=== PATIENT | female | born 1990 | race Caucasian/White ===

== ENCOUNTER 2019-09-26 13:56 | Outpatient (CLI) | payer BC, SELFPAY ==
--- NOTE | 2019-09-26 14:06 | US_ITS ---
WS: [id number] OBSTETRICAL ULTRASOUND COMPLETE HISTORY: SUPERVISION OF NORMAL MULTIGRAVIDA COMPARISON: None available. Single intrauterine gestation in Cephalic presentation. Cervix is Closed and normal length. Cervical length is 3.9 cm. Normal amount of amniotic fluid surrounds the fetus. Placenta: Posterior, no previa or abruption. Placenta grade 1 Heart: 164 BPM. Four chambers are identified. Anatomy: Intracranial structures and spine are normal. kidneys, stomach and urinary bladd er are unremarkable. Abdominal wall, three-vessel cord and cord insertion site are normal. 4 extremities are present. profile: Unremarkable. Gender: Male. measurements: BPD = 4.8 cm = 20w3d HC = 17.9 cm = 20w3d AC = 15.4 cm = 20w4d FL = 3.4 cm = 20w4d EFW: 360 g., Measurements are internally concordant. AGA by ultrasound: 20w4d COREY by ultrasound: 02/09/2020 US/US OB >= 14 weeks fetus [id number] IMPRESSION: 1. Single intrauterine gestation of 20w4d with an EDC of 02/09/2020. 2. Unremarkable screening survey of anatomy.
== END 2019-09-26 13:57 | disposition home or self-care (01) ==
LOC: RAD 14:00
PROVIDERS: Visit Provider Family Medicine
DX: Z34.81 Encounter for supervision of other normal pregnancy, first trimester (principal)
CPT/HCPCS: 76805

== ENCOUNTER 2020-02-05 15:45 | Inpatient (IN) | payer BC, SELFPAY ==
[2020-02-05] VITALS (42 sets, daily range): BP systolic 0–165; BP diastolic 0–105; PULSE 77–105; RESP 16–18; TEMP 36.4–37.3; O2SAT 91–99; BMI 29.2
--- NOTE | 2020-02-05 16:46 | P.HP_ITS ---
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 She presents at 39-2/7 weeks gestation for elective induction of labor. 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 Also, she is group B strep positive and will need intrapartum antibiotic prophylaxis. course has also been complicated by anemia of and tobacco use during , although patient has gotten herself down to smoking 1 to 2 cigarettes/day. Present Details : 3 Para: 1 Date of Last Menstrual Period: 05/06/19 Calculated Date of Delivery: 02/10/20 Gestational Age Based on Last Menstrual Period: 39 Dating criteria OB: LMP confirmed by 2nd trimester US care: good care Ultrasounds: normal 1st trimester US and normal mid trimester US Obstetrical complications: other (Group B strep positive status, anemia of ) Other Details: Abnormal glucose tolerance testing Labs Blood type OB HPI: O (+) positive Rubella: Immune RPR: Negative GBS: Positive HBsAG: Negative Other Lab Information: INITIAL LABS: Blood Type: O+ D (Rh) Type: Positive Antibody Screen: Negative HCT/HB.7/40.0 Pap Test: ASCUS with high risk HPV positive (done by [facility] 01/2019, colposcopy negative, has follow-up scheduled with them) Rubella: Immune VDRL: Nonreactive Urine Culture/Screen: Negative HBsAg: Negative HIV Counseling/Testing: Negative Hepatitis C: Negative Chlamydia: Negative GC: Negative 8-18 WEEK LABS: MSAFP/Multiple Markers: Negative 24-30 WEEK LABS: HCT/HGB: 11.8 Diabetes Screen: 181 3 hour GTT (if screen abnormal): Fasting of 63, 1 hour 169, 2-hour 138, 3-hour 48 32-36 WEEK LABS: Group B Strep (35-37 weeks): Positive L&D/Induction Specific History Indication for induction OB: other (Elective secondary to father of baby working out of state and cervix has been changing and she is group B strep positive and in need of intrapartum antibiotic prophylaxis) Planned induction method: per misoprostol protocol Review of Systems Const: Denies: fever(s) : Denies: vaginal bleeding, vaginal discharge or pelvic pain Medications/Allergies Home Medications Medication Instructions Recorded Confirmed Last Taken Type PNV cmb#95-ferrous fumarate-FA 1 tab PO DAILY 02/05/20 02/05/20 02/04/20 08:00 History [] ferrous sulfate [Iron (ferrous 325 mg PO DAILY 02/05/20 02/05/20 02/04/20 08:00 History sulfate)] Allergies Allergy/AdvReac Type Severity Reaction Status Date / Time No Known Allergies Allergy Verified 02/05/20 16:52 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 PFSH: Medical History (Updated 02/05/20 @ 17:17 by Allyn Hamilton MD) Anxiety Depression Migraines Surgical History (Updated 02/05/20 @ 16:53 by Allyn Hamilton MD) S/P tonsillectomy S/P wisdom tooth extraction Family History (Updated 02/05/20 @ 17:03 by Allyn Hamilton MD) Mother Psychiatric illness Depression Social History (Updated 02/05/20 @ 17:07 by Allyn Hamilton MD) Smoking and tobacco status: current every day smoker cigarettes Years cigarettes smoked: 18 Number of cigarettes per day: 1-5 Second hand smoke exposure: Yes Alcohol intake: never Substance/Drug Use: never Adopted: No Caregiver/support person: Yes Lives independently: Yes Household members: significant other, family and children Number of children: 1 Number of grandchildren: 0 Highest education level completed: Associate Degree: Academic Program Current occupational status: previously employed 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 Date GA/Weeks Outcome Route Wt Inf Gender Labor Lgth Comp. Anesth esia Location 05/09/11 38 live - full term Vaginal 6 lb 13 oz Female 18 hours [place], [place] 12/18/18 2 spontaneous Delivery Date: 05/09/11 Patient states that she was induced because they were afraid baby was going to get too big, and I would need a . Allyn Hamilton Delivery Date: 12/18/18 No complications Allyn Hamilton Care COREY Calculator Estimated Delivery Date Method Current WG Current Estimate 02/10/20 LMP (Certain) 39w 2d Expected Delivery Route/Plan Vaginal/misoprostol Vitals/I&O/Wt Last Vital Signs Pulse 104 H 02/05/20 16:23 BP 133/80 02/05/20 16:23 Physical Exam Narrative: EXAM NARRATIVE: For complete physical examination please refer to her records. heart tones are baseline 150 with moderate variability, accelerations and no decelerations. She has an occasional mild contraction which she does not even consider painful. Const: COMMON NORMALS: no acute distress, patient oriented x3, no limitations, healthy appearing, alert and well nourished : MANUAL OB EXAM: dilated 3 cm, effaced (40 to 50%), station (-3, posterior) and other (Vertex) AMNIOTIC FLUID: no fluid Psych: COMMON NORMALS: mental status grossly normal, Normal thought process present, cooperative, normal affect, speech normal and activity/motor behavior normal Data : 02/05/20 16:25 A&P Assessment and plan (1) Encounter for induction of labor: Will plan Cytotec initially after discussion of mechanism of action and potential side effects and comparison to Pitocin given her cervical exam. Status: Acute (2) 39 weeks gestation of : Status: Acute (3) Group B Streptococcus carrier state affecting : We will begin intrapartum antibiotic prophylaxis per the group B strep protocol. Status: Acute (4) Anemia affecting in third trimester: Status: Acute (5) Smoking (tobacco) complicating , third trimester: Status: Acute (6) Abnormal glucose tolerance test during , not yet delivered: Status: Acute Attestations 2 Medical Necessity Statement*: As patient is being induced and treated for group B strep positive carrier status during labor, she will need inpatient admission Time Spent in Patient Care: Greater than 35 minutes Coding Level of Care Code Acute Management Lead for g Fwd Diagnoses Encounter for induction of labor Z34.90 39 weeks gestation of Z3A.39 Group B Streptococcus carrier state affecting O99.820 Anemia affecting in third trimester O99.013 Smoking (tobacco) complicating , third trimester O99.333 Abnormal glucose tolerance test during , not yet delivered O99.810
[2020-02-05] MEDS: dextrose 5%-lactated ringers 1,000 ML 125 ML IV (16:49)
[2020-02-05] MEDS: ampicillin 2,000 MG in sodium chloride 0.9% (plus) 50 ML 100 MG IV (16:49)
[2020-02-05 16:58] LABS: Basophils # 0.1 10^3/uL (0.0-0.1); Basophils % 0.4 %; Eosinophils # 0.1 10^3/uL (0.0-0.8); Hematocrit 36.4 % (37.0-47.0); Hemoglobin 12.2 g/dL (11.5-15.3); Lymphocytes # 2.6 10^3/uL (0.8-4.8); Mean Corpuscular HGB Conc 33.5 g/dL (30.0-36.0); Mean Corpuscular Hemoglobin 32.6 pg (28.0-34.0); Mean Corpuscular Volume 97.3 fL (81-99); Mean Platelet Volume 10.4 fL (7.4-10.4); Monocytes # 0.7 10^3/uL (0.2-0.9); Monocytes % 4.9 %; Neutrophils # 9.56 10^3/uL (1.8-7.7); Neutrophils % 72.2 %; Nucleated Red Blood Cells % 0 %; Platelet Count 278 10^3/cmm (130-400); Red Blood Count 3.74 10^6/uL (4.1-5.3); Red Cell Distribution Width 13.9 % (12.1-15.1); White Blood Count 13.2 10^3/uL (4.0-10.0)
[2020-02-05] MEDS: miSOPROStol 100 mcg tablet 25 MCG VAGINAL (17:06)
--- NOTE | 2020-02-05 18:00 | PC.NURSE ---
1800 PT OFF MONITOR TO WALK FOR 1 HOUR INSTRUCTIONS GIVEN, PT VOICES UNDERSTANDING.
[2020-02-05] MEDS: lactated ringers 1,000 ML 999 ML IV (19:05)
[2020-02-05] MEDS: ampicillin 1,000 MG in sodium chloride 0.9% (plus) 50 ML 100 MG IV (19:32)
--- NOTE | 2020-02-05 21:44 | PM.DELIVERY ---
Delivery Note: Date of delivery: February 05, 2020 Pre-delivery diagnoses: Encounter for induction of labor 39-week gestation hutson intrauterine Group B streptococcus carrier state affecting Anemia of Smoking complicating Abnormal glucose tolerance testing during Post-delivery diagnoses: Encounter for induction of labor 39-week hutson intrauterine Group B strep carrier state affecting Anemia of Smoking complicating Abnormal glucose tolerance testing during Spontaneous rupture of membranes Spontaneous vaginal delivery of a viable term male infant Double nuchal cord Adequate intrapartum group B strep prophylaxis Bilateral periurethral abrasions First-degree perineal laceration status post repair Delivering Physician: Dr. Hamilton Estimated blood loss (mL): 150 Pre-Delivery Course: Patient arrived this afternoon just after 3 PM for cervical ripening and induction of labor at 39-2/7 weeks gestation. She was 3 cm dilated, 40 to 50% effaced and -3 station, vertex and posterior when she started. 1 dose of Cytotec was placed after her first dose of ampicillin per the group B strep protocol was given. She ambulated in the hallways and experienced spontaneous rupture of membranes productive of a moderate amount of just mildly tinged meconium fluid at 184. At that time she was 4 cm dilated, 75% effaced and -2 station and was marty every 1 to 2 minutes. She opted for an epidural, received it and became comfortable. She was then found to be completely dilated and +2 station at 2057. By that time she had received her second dose of ampicillin and was considered adequately treated for group B strep prophylaxis. Delivery: We began the active portion of the second stage of her labor at 2111. In 9 minutes of pushing she delivered a viable male infant at 2120. Head was JOSE. There was a double nuchal cord which was tight and was challenging to reduce but was reduced upon the perineum. Bulb suctioning had been done upon delivery of baby's head and then of baby's body. Baby was placed on maternal abdomen while the cord was clamped by myself after a delay of about 40 seconds, cut by the father the baby and cord blood obtained. Baby was initially stunned but then had a strong cry while on mother's abdomen and was taken to the warmer for routine resuscitative measures which included DeLee suctioning of a few mL's of clear fluid. Gentle traction was placed on the cord, and intravenous Pitocin was given in routine doses. The placenta was then delivered intact at 2126 and appeared matured and calcified. Fundal exam found a firm uterus. Perineum and cervix were inspected, and there were bilateral periurethral abrasions as well as a first-degree midline perineal laceration which looked as though it had torn along old laceration lines. The first-degree perineal laceration was repaired with 2-0 chromic in single layer fashion with use of a running stitch and her epidural as anesthesia. Mother and baby were stable. EBL 150 mL. Post-Delivery Status: Baby had Apgars of 8 at 1 minute and 9 at 5 minutes and he weighed 6 pounds 9 ounces and was 19-3/4 inches in length. A&P Assessment and plan (1) Encounter for induction of labor: Status: Resolved (2) 39 weeks gestation of : Status: Resolved (3) Group B Streptococcus carrier state affecting : Status: Resolved (4) Anemia affecting in third trimester: Status: Resolved (5) Smoking (tobacco) complicating , third trimester: Status: Resolved (6) Abnormal glucose tolerance test during , not yet delivered: Status: Resolved (7) Spontaneous vaginal delivery: Status: Acute (8) Periurethral abrasion, delivered, current hospitalization: Status: Acute (9) Perineal laceration with delivery, first degree: Status: Acute (10) Double nuchal cord: Status: Resolved Coding Level of Care Code Acute Telesales Specialist for Chg Fwd Diagnoses Encounter for induction of labor Z34.90 39 weeks gestation of Z3A.39 Group B Streptococcus carrier state affecting O99.820 Anemia affecting in third trimester O99.013 Smoking (tobacco) complicating , third trimester O99.333 Abnormal glucose tolerance test during , not yet delivered O99.810 Spontaneous vaginal delivery O80 Double nuchal cord O69.1XX0 Periurethral abrasion, delivered, current hospitalization O71.82 Perineal laceration with delivery, first degree O70.0
[2020-02-06] VITALS (12 sets, daily range): BP systolic 0–159; BP diastolic 0–89; PULSE 65–90; RESP 16–18; TEMP 36.4–36.8; O2SAT 97–98
[2020-02-06] MEDS: TRAMadol 50 mg Tablet PO (06:22)
[2020-02-06] MEDS: prenatal vitamin Capsule 1 CAP PO (09:14)
[2020-02-06] MEDS: docusate sodium 100 mg Capsule PO ×2 (09:14→17:16)
[2020-02-06 16:32] LABS: Hematocrit 37.6 % (37.0-47.0); Hemoglobin 12.3 g/dL (11.5-15.3); Mean Corpuscular HGB Conc 32.7 g/dL (30.0-36.0); Mean Corpuscular Hemoglobin 32.1 pg (28.0-34.0); Mean Corpuscular Volume 98.2 fL (81-99); Mean Platelet Volume 10.1 fL (7.4-10.4); Platelet Count 289 10^3/cmm (130-400); Red Blood Count 3.83 10^6/uL (4.1-5.3); White Blood Count 18.8 10^3/uL (4.0-10.0)
--- NOTE | 2020-02-06 18:04 | P.PN_ITS ---
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 She is having some cramping, especially when breast-feeding. Vitals/I&O/Wt Last Vital Signs Temp 98.1 F 02/06/20 15:58 Pulse 87 02/06/20 17:24 Resp 16 02/06/20 17:24 BP 113/71 02/06/20 17:24 Pulse Ox 97 02/06/20 17:24 02/06/20 02/06/20 02/06/20 06:59 14:59 22:59 Intake Total 660.417 / 2062.800 Output Total 800 / 1400 Balance -139.583 / 662.800 Weight last 48 hrs Weight 160 lb 5.644 oz Weight 160 lb Physical Exam Const: COMMON NORMALS: no acute distress, patient oriented x3, healthy appearing, alert and well nourished Neck/C-Spine: COMMON NORMALS: no JVD Resp: COMMON NORMALS: normal respiratory effort, No retractions, No use of accessory muscles and clear to auscultation bilaterally AUSCULTATION: clear to auscultation bilaterally Cardio: COMMON NORMALS: no JVD, regular rate, regular rhythm, S1 normal heart sound present, S2 normal heart sound present, No gallops present (Cardio), No clicks present (Cardio), No murmurs present (Cardio), No rub (Cardio) and Peripheral pulses 2+ throughout RATE: regular rate RHYTHM: regular rhythm HEART SOUNDS: S1 normal heart sound present and S2 normal heart sound present PERIPHERAL PULSES: Peripheral pulses 2+ throughout : UTERUS PALPATION: Yes Other OB uterine findings (Fundus is firm, deep and 2 fingerbreadths below the umbilicus, slightly tender) Extremity: GENERAL: No edema Neuro: COMMON NORMALS: patient oriented x3 SENSORIUM/ORIENTATION: Yes alert Urinary Catheter Management^: Mitchell Latex: Cath Placed During This Visit: yes, but has since been removed by the nurse Reason for Continuing Indwelling Catheter: Accurate Measurement of Urinary Output in Critically Ill Patients Urinary Catheter Date of Insertion: 02/05/20 Urinary Catheter Time of Insertion: 20:12 Date Urinary Catheter Removed: 02/05/20 Time Urinary Catheter Discontinued: 21:10 Data : 02/06/20 16:23 A&P Assessment and plan (1) Spontaneous vaginal delivery: Routine orders Status: Acute (2) Elevated blood pressure reading without diagnosis of hypertension: She had 2 elevated blood pressure readings today, both of which were in the 150 range systolically. These were both times when she was in pain, cramping. Follow-up blood pressure readings have all been in the 1 teens systolically. Status: Acute (3) Periurethral abrasion, delivered, current hospitalization: Status: Acute (4) Perineal laceration with delivery, first degree: Status: Acute Attestations Medical Necessity Statement*: As we are watching her blood pressure, which is something new for her, and she delivered last evening late, we will watch her overnight and discharge tomorrow with baby. Coding Level of Care Code Acute House Decorator for Sandyg Fwd Diagnoses Spontaneous vaginal delivery O80 Elevated blood pressure reading without diagnosis of hypertension R03.0 Periurethral abrasion, delivered, current hospitalization O71.82 Perineal laceration with delivery, first degree O70.0
[2020-02-06] MEDS: calcium carbonate 500 mg Chew Tablet 1000 MG PO (20:04)
[2020-02-07 04:06] VITALS: BP 117/80; PULSE 63; RESP 18; TEMP 36.5; O2SAT 97
[2020-02-07 06:35] LABS: Basophils # 0.1 10^3/uL (0.0-0.1); Basophils % 0.3 %; Eosinophils # 0.3 10^3/uL (0.0-0.8); Eosinophils % 1.9 %; Hematocrit 39.6 % (37.0-47.0); Hemoglobin 12.8 g/dL (11.5-15.3); Lymphocytes # 4.8 10^3/uL (0.8-4.8); Lymphocytes % 32.1 %; Mean Corpuscular HGB Conc 32.3 g/dL (30.0-36.0); Mean Platelet Volume 10.3 fL (7.4-10.4); Monocytes % 6.7 %; Neutrophils # 8.59 10^3/uL (1.8-7.7); Neutrophils % 57.8 %; Nucleated Red Blood Cells % 0 %; Platelet Count 267 10^3/cmm (130-400); Red Cell Distribution Width 13.9 % (12.1-15.1); White Blood Count 14.9 10^3/uL (4.0-10.0)
[2020-02-07 06:54] LABS: Slide Review Slide Review Perform
--- NOTE | 2020-02-07 07:18 | US_ITS ---
WS: [id number] TRANSABDOMINAL PELVIC ULTRASOUND HISTORY: Recent . COMPARISON: None available. Uterus: 16.5 cm x 12.4 cm x 8.7 cm. Markedly enlarged uterus as expected for recent state. Endometrium: 4.4 cm. Markedly thickened endometrial contents. There are a few cystic areas were pred ominantly solid material of slightly increased echogenicity as compared to the myometrium. There is s ome increased vascularity portions of the endometrial contents. Right ovary: 2.9 cm x 2.1 cm x 2.2 cm; no solid or cystic mass. Normal vascularity. Left ovary: 4.6 cm x 2.1 cm x 2.7 cm; no solid or cystic mass. Normal vascularity. No free fluid in the cul-de-sac. US/US pelvic complete* [id number] IMPRESSION: 1. Markedly thickened heterogeneous endometrium. There is increased vascularit y suggesting this could be retained products of the conception. 2. Enlarged uterus as expected from recent state.
--- NOTE | 2020-02-07 07:21 | PM.OBGYDC ---
Discharge Providers LEAD APPLICATIONS DEVELOPER Date of Admission: 02/05/20 15:45 Date of Discharge: 02/07/20 Attending Provider at Admission: Allyn Hamilton MD Attending Provider at Discharge: Allyn Hamilton MD Primary Care Provider: Allyn Hamilton MD Diagnoses at Discharge Discharge Diagnosis (1) Encounter for induction of labor: Status: Resolved (2) 39 weeks gestation of : Status: Resolved (3) Group B Streptococcus carrier state affecting : Status: Resolved (4) Anemia affecting in third trimester: Status: Resolved (5) Smoking (tobacco) complicating , third trimester: Status: Resolved (6) Abnormal glucose tolerance test during , not yet delivered: Status: Resolved (7) Spontaneous vaginal delivery: Status: Acute (8) Periurethral abrasion, delivered, current hospitalization: Status: Acute (9) Perineal laceration with delivery, first degree: Status: Acute (10) Elevated blood pressure reading without diagnosis of hypertension: Status: Acute (11) Pelvic pain: Status: Acute Reason for Visit Reason for Visit: Induction of labor Hospital Course Hospital Course: Patient arrived in the OB department in the late afternoon of 02/05/2020 for cervical ripening and induction of labor at 39-2/7 weeks electively as 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 She had also been dilating throughout the week and was group B strep positive and in need of intrapartum antibiotic prophylaxis. Upon her arrival to the OB department she was 3 cm dilated 40 to 50% effaced and -3 station. We began ampicillin per the group B strep protocol and then placed her first dose of Cytotec. She experienced spontaneous rupture of membranes a few hours later and then delivered a viable male with a double nuchal cord reduced on the perineum less than 5 hours after arrival. She did receive 2 doses of antibiotics per the group B strep protocol and was afebrile with membranes ruptured less than 3 hours prior to delivery. She sustained a first-degree perineal laceration which was repaired with her epidural as anesthesia. Placenta delivered uneventfully and appeared matured. She has had typical bleeding for this part in her phase. She has however had some elevated blood pressures which she is never experienced before. She has had terrible cramping in her pelvis and slightly into the right lower quadrant area. She wonders if it might not be gas pains. She states that when they check her blood pressure it it correlated quite a bit with when she was in pain, and when it was rechecked when her pain was controlled it was normal. She has had no discharge and no fever. She has been passing some gas but has not had a bowel movement since prior to the delivery. Patient's CBC this morning showed improvement in her white blood cell count. Discharge Summary: Patient plans to resume the OCP at her 6-week visit. Given the fact that her blood pressure is been intermittently elevated, although it is likely secondary to the pelvic pain for which we are obtaining a pelvic ultrasound and she has been taking ibuprofen 800 mg, we will follow-up her blood pressure on the same day as baby's visit. Her pelvic US revealed some cystic tissue and vascularity which, upon speaking with radiology, may be suspicious for retained placental tissue. I then consulted Dr. Middleton who was business info consultant [place] [facility] [place] [facility] [place] patient's overall clinic picture is not consistent with typical presentation. Dr. Middleton saw the patient and will do a follow up US in 4 weeks with appt and has counseled the patient on what to look for to contact us prior to that time should she need to. Information Peripartum Data: Delivery Method: Vaginal Physical Exam Neck/C-Spine: COMMON NORMALS: no JVD Resp: COMMON NORMALS: normal respiratory effort, No retractions, No use of accessory muscles and clear to auscultation bilaterally AUSCULTATION: clear to auscultation bilaterally Cardio: COMMON NORMALS: no JVD, regular rate, regular rhythm, S1 normal heart sound present, S2 normal heart sound present, No gallops present (Cardio), No clicks present (Cardio), No murmurs present (Cardio), No rub (Cardio) and Peripheral pulses 2+ throughout RATE: regular rate RHYTHM: regular rhythm HEART SOUNDS: S1 normal heart sound present and S2 normal heart sound present PERIPHERAL PULSES: Peripheral pulses 2+ throughout : UTERUS PALPATION: Yes Other OB uterine findings (Uterine fundus is firm, deep and 2 to 3 fingerbreadths below the umbilicus, tenderness and firm area to the right of pelvic midline) Extremity: COMMON NORMALS: no pedal edema Urinary Catheter Management^: Mitchell Latex: Cath Placed During This Visit: yes, but has since been removed by the nurse Reason for Continuing Indwelling Catheter: Accurate Measurement of Urinary Output in Critically Ill Patients Urinary Catheter Date of Insertion: 02/05/20 Urinary Catheter Time of Insertion: 20:12 Date Urinary Catheter Removed: 02/05/20 Time Urinary Catheter Discontinued: 21:10 Discharge Data Data Completed and Pending: Pending at discharge Category Date Time Status US pelvic complet e* [id number] Routine Ultrasound 02/07/20 07:18 Ordered Labs from last 24 hours 02/07/20 02/06/20 06:00 16:23 WBC 14.9 H 18.8 H RBC 4.00 L 3.83 L Hgb 12.8 12.3 Hct 39.6 37.6 MCV 99.0 98.2 MCH 32.0 32.1 MCHC 32.3 32.7 RDW 13.9 14.0 Plt Count 267 289 MPV 10.3 10.1 Neut % (Auto) 57.8 Lymph % (Auto) 32.1 [place] % (Auto) 6.7 Eos % (Auto) 1.9 Baso % (Auto) 0.3 Neut # (Auto) 8.59 H Lymph # (Auto) 4.8 [place] # (Auto) 1.0 H Eos # (Auto) 0.3 Baso # (Auto) 0.1 Nucleated RBC % (a uto) 0 Nucleated RBCs # 0.0 Vitals: Last Vital Signs Temp 97.7 F 02/07/20 04:06 Pulse 63 02/07/20 04:06 Resp 18 02/07/20 04:06 BP 117/80 02/07/20 04:06 Pulse Ox 97 02/07/20 04:06 Discharge Plan Discharge Patient Disposition: Home, Self-Care Condition: Stable Prescriptions: New -U 106.5-1 mg Capsule 1 cap PO DAILY Qty: 30 RF: 3 Discontinued ferrous sulfate [Iron (ferrous sulfate)] 325 mg (65 mg iron) Tablet 325 mg PO DAILY RF: 0 PNV cmb#[id number]-ferrous fumarate-FA [] 28 mg iron- 800 mcg Tablet 1 tab PO DAILY RF: 0 Discharge Orders: Discharge Order (Routine); Ordered 02/07/20 Ordered By: Allyn Hamilton Referrals: Allyn Hamilton MD [Primary Care Provider] - 03/20/20 11:15 am (Please schedule a blood pressure check as a nurse visit the same day patient comes for her babies visit to see Dr. August. She will also need a 6-week visit with Barb Yoon.) Discharge Diet: Usual diet Discharge Activity: Limit activity as instructed Patient Instructions: Your Baby (GEN), and the Working Mom (GEN), Expression, Collection and Storage of Breastmilk (GEN), How to Hold and Breastfeed Your Baby (GEN), and Nipple Soreness (GEN), Breast Fullness Versus Breast Engorgement (GEN), and Plugged Ducts (GEN), How to Increase Your Milk Supply (GEN), How to Tell if Your Baby is Getting Enough Breast Milk (GEN), and Your Diet (GEN), Breast Care for the Breast Feeding Mother (GEN), OB Discharge Report, OB Food/Drug Interaction Guide, OB Vaginal Deliveries Activity Restrictions/Additional Instructions: Patient states that she has an adequate supply of ibuprofen for home use as needed for pain up to 800 mg every 8 hours as needed. She was also advised to continue her vitamins as long as she is breast-feeding. Discharge Attestations LEAD APPLICATIONS DEVELOPER Time Spent in Discharge Care*: greater than 30 min Specific Discharge Activities: Specific discharge activities: educating patient, documenting/other paperwork and evaluating patient/reviewing data Time Spent in Smoking Cessation: Time spent discussing smoking cessation with patient: 3 to 10 minutes Details of Smoking Cessation Education: Patient stated that she is down to 1 to 2 cigarettes/day and wanted to use this hospitalization as time away from smoking so that she could stop. She feels confident that she will be able to do that as she was down to so few cigarettes per day. Emotional support was given to help her with this transition. Status at Discharge: Cognitive status at discharge: cognitively intact, Behavioral status at discharge: cooperative, Functional status at discharge: independent ambulation Overall status at discharge: patient is progressing back to baseline Coding Level of Care Code Acute Asset Recovery Specialist for [facility] Fwd Exam Detailed Diagnoses Encounter for induction of labor Z34.90 39 weeks gestation of Z3A.39 Group B Streptococcus carrier state affecting O99.820 Anemia affecting in third trimester O99.013 Smoking (tobacco) complicating , third trimester O99.333 Abnormal glucose tolerance test during , not yet delivered O99.810 Spontaneous vaginal delivery O80 Periurethral abrasion, delivered, current hospitalization O71.82 Perineal laceration with delivery, first degree O70.0 Elevated blood pressure reading without diagnosis of hypertension R03.0 Pelvic pain R10.2
[2020-02-07] MEDS: docusate sodium 100 mg Capsule PO (09:30)
[2020-02-07 10:40] VITALS: BP 119/74; PULSE 82; RESP 18; TEMP 36.8
--- NOTE | 2020-02-07 16:54 | P.CONIM_ITS ---
Providers/Reason For Consult Consulting Physican/Specialty*: TALENT PARTNER Reason for Consult*: Abnormal endometrium on ultrasound Attending Physician: Allyn Hamilton MD Primary Care Provider: Allyn Hamilton MD History of Present Illness History of Present Illness Latasha christian is a 30-year-old 3 para 2-0-1-2 who is status post vaginal delivery on 02/05/[address] Allyn Hamilton. Consult was called for ultrasound that showed possible retained placenta. Per Dr. Hamilton delivery was uncomplicated and placenta looked intact. Patient had normal amount of bleeding after delivery. Since delivery on post day #1 and 2 her bleeding is overall remained minimal to moderate however she had a lot of cramping lower abdominal pain with breast-feeding as well as pain on uterine massage and as a result Dr. Hamilton felt that this was out of proportion to the normal and pelvic ultrasound was ordered. Pelvic ultrasound showed an endometrium measuring 4 cm with heterogenous material with flow concerning for retained placenta which is why I am consulted. ----> Today on 02/07/2020, day #2 she is doing okay. States that she does have a lot of cramping pain only when breast-feeding but otherwise has no pain. Bleeding has been minimal to moderate and today she has only gone through 2 pads which were about three fourth saturated. She denies passing of clots. She denies nausea, vomiting, abdominal pain, fever, chills, shortness of breath and chest pain. She is breast-feeding and bonding well with her child Review of Systems General: Reports: 10 or more systems reviewed and unremarkable except in HPI and below Const: Denies: fever(s), chills, change in appetite, change in weight, fatigue, malaise or change in sleep pattern Eyes: Denies: change in vision, eye discomfort, eye discharge or seeing flashes ENMT: Denies: throat pain, odynophagia, hoarseness, bleeding gums, ear discharge, nasal discharge or nasal congestion Card: Denies: chest pain, irregular heart rhythm, edema, swelling of feet/ankles, dyspnea on exertion or leg pain with exertion Resp: Denies: dyspnea, productive cough, wheezing or chest congestion GI: Denies: abdominal pain, nausea, vomiting, heartburn, diarrhea, consti pation, change in bowel habits or hematochezia : Denies: flank pain, dysuria, urinary frequency, urinary urgency, urinary incontinence, genital lesions, vaginal odor, vaginal bleeding, vaginal discharge, dysmenorrhea, change in menstrual flow, prolapse symptoms, dyspareunia or sexual dysfunction Musc: Denies: neck pain, back pain, joint pain, joint swelling or muscle cramps Skin/Breast: Denies: rash, pruritus, breast tenderness, nipple discharge or breast mass Neuro: Denies: headache(s), numbness in extremities or seizure-like activity Psych: Denies: anxiety, depression, mood swings or change in appetite Endo: Denies: cold intolerance, flushing, hot flashes or change in body appearance Sid/Lymph: Denies: easy bruising, easy bleeding or enlarged lymph nodes All/Imm: Denies: urticaria, tongue swelling, acute wheezing or itchy eyes Meds/Allergies Home Medications and Allergies Home Medications Medication Instructions Recorded Confirmed Last Taken Type multivit no.70-cqnm-[id number] acid 1 cap PO DAILY #30 cap 02/07/20 Unknown Rx [-U] Allergies Allergy/AdvReac Type Severity Reaction Status Date / Time No Known Allergies Allergy Verified 02/05/20 16:52 Current Medications Current Medications Generic Name Dose Route Start Last Admin Trade Name Freq PRN Reason Stop Dose Admin Calcium Carbonate 1,000 mg 02/06/20 19:53 02/06/20 20:04 Tums PO 1,000 mg Q4H PRN Administration heartburn Docusate Sodium 100 mg 02/06/20 09:00 02/07/20 09:30 Colace PO 100 mg BID TERENCE Administration Ibuprofen 800 mg 02/06/20 09:00 02/07/20 15:00 Motrin PO 800 mg TID TERENCE Administration Multivit/Folic Acid/Iron 1 cap 02/06/20 09:00 02/07/20 16:50 -U PO Not Given DAILY TERENCE Tramadol HCl 50 - 100 mg 02/06/20 06:13 02/06/20 06:22 Ultram PO 100 mg Q6H PRN Administration MODERATE PAIN PFSH Acute PFSH: Medical History No pertinent past medical history Denies diabetes, asthma, hypertension, seizures, DVT/PE. PMD: Dr. 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 Has been cutting down and currently smokes 1 to 2 cigarettes a day Alcohol use: Denies Drug use: Denies current or past use Female Reproductive History: Date of last menstrual period: 05/06/19 : 3 PFSH: Medical History No pertinent past medical history Denies diabetes, asthma, hypertension, seizures, DVT/PE. PMD: Dr. 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 Has been cutting down and currently smokes 1 to 2 cigarettes a day Alcohol use: Denies Drug use: Denies current or past use Other Female Reproductive History: Menstrual History Comment: Menarche at age 12 with regular 28-day cycles lasting for 4 to 5 days Sexual History: STD History Comment: Denies sexually transmitted diseases Contraception: Contraception History Comment: has used control pills and condoms in the past for contraception. Is unsure about what she wants to use for contraception . Vitals/I&O/Wt Last Vital Signs Temp 98.3 F 02/07/20 10:40 Pulse 82 02/07/20 10:40 Resp 18 02/07/20 10:40 BP 119/74 02/07/20 10:40 Pulse Ox 97 02/07/20 04:06 Weight last 48 hrs Weight 160 lb 5.644 oz Physical Exam Narrative: EXAM NARRATIVE: General: well developed, well nourished, no acute distress Neuro/Psych: alert, oriented to time, place and person. Neck: No thyromegaly Heart: S1-S2 heard, regular rate and rhythm. Lungs: Clear to auscultation bilaterally. Breast: Deferred Abdomen: Soft, nontender, no rebound, no guarding, no hepatosplenomegaly, no umbilical hernia, fundus firm below umbilicus Legs: Trace bilateral pitting pedal edema no calf tenderness. Negative Homans sign Back: No CVA tenderness Skin: Normal over abdomen with stretch alvarado External genitalia: Appears normal, no lesions, shaved hair, some edema Remainder of pelvic exam deferred. Urinary Catheter Management^: Mitchell Latex: Cath Placed During This Visit: yes, but has since been removed by the nurse Reason for Continuing Indwelling Catheter: Accurate Measurement of Urinary Output in Critically Ill Patients Urinary Catheter Date of Insertion: 02/05/20 Urinary Catheter Time of Insertion: 20:12 Date Urinary Catheter Removed: 02/05/20 Time Urinary Catheter Discontinued: 21:10 A&P Assessment and plan (1) Abnormal ultrasound of endometrium: -Discussed results of ultrasound with patient. Discussed that you cannot definitely rule out the possibility of retained placenta however she does not fit symptomatically with retained products of placenta because I would expect heavy bleeding and dropping in hemoglobin. Her bleeding has been normal the fundus is been firm and she has been observed for the past 2 days with very minimal symptoms. On discussion with patient it sounds like the pain that she has been experiencing sounds pretty normal---normal cramping uterine pain with breast-feeding as well as discomfort with fundal rubs. She has had only ibuprofen for pain today and this is kept her pain under control. Again counseled patient that the cramping pain tends to be most significant especially with subsequent deliveries given that perineal discomfort is not as much. Discussed that I would recommend she take ibuprofen around the clock with food to decrease some of this discomfort. In about 2 to 3 weeks the cramping with breast-feeding should be less intense. Discussed that since I cannot definitely rule out retained products I would recommend a follow-up ultrasound although I suspect that this is unlikely. I discussed that I reviewed the images of the ultrasound myself and I would say that this looks more like blood clots. -Symptoms of retained placenta-abnormal bleeding, fever, chills, shortness of breath reviewed with patient. If she experiences any symptoms she needs to go to the emergency room or contact Dr. Hamilton -Follow-up with me 1 month from now for repeat transabdominal ultrasound to reassess the uterus. The uterus should definitely be under 10 weeks at this point of time and the endometrium should be pretty close to normal. She understands this. All her questions were answered and she and her agree with the current plan of care. I spent 35 minutes with the patient today with more than 50% of my time spent in [id number] discussion and counseling as documented above. Status: Acute Coding Level of Care Code Acute Pharmacy Informatics Manager for [facility] Fwd Diagnoses Abnormal ultrasound of endometrium R93.5 Results OB Labs Hemoglobin 12.2, 12.3 and 12.8 on 3 delivery, day #1 and day #2. White count on day #1 was 18 and has dropped to 14 on day #2. 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 ----The uterus measures 16.5 x 12.4 x 8.7 cm consistent with state. The endometrium measures 4.4 cm with thickened contents showing cystic areas with increased echogenicity, some increased vascularity and portions. The right ovary measures 2.9 x 2.1 x 2.2 cm without any masses. The left ovary measures 4.6 x 2.1 x 2.7 cm without any masses. Normal blood flow noted bilaterally. No free fluid in the cul-de-sac. Cannot rule out retained products of conception. History History History 3 Term 2 Miscarriages/Ectopic 1 0 Living Children 2 Past Pregnancies Del. Date GA/Weeks Outcome Route Wt Inf Gender Labor Lgth Comp. Anesth esia Location 05/09/11 38 live - full term Vaginal 6 lb 13 oz Female 18 hours [place], [place] 12/18/18 2 spontaneous Delivery Date: 05/09/11 Patient states that she was induced because they were afraid baby was going to get too big, and I would need a . Allyn Hamilton Delivery Date: 12/18/18 No complications Allyn Hamilton Other History: Abnormal glucose tolerance testing
[2020-02-07 17:05] VITALS: BP 124/84; PULSE 92; RESP 16; TEMP 36.8; O2SAT 98
== END 2020-02-07 17:45 | disposition home or self-care (01) | DRG 807 ==
PROVIDERS: Admitting Provider Family Medicine; PCP Family Medicine; Visit Provider Family Medicine
DX: O99.824 Streptococcus B carrier state complicating childbirth (principal); Z37.0 Single live birth; Z3A.39 39 weeks gestation of pregnancy; O99.334 Smoking (tobacco) complicating childbirth; F17.210 Nicotine dependence, cigarettes, uncomplicated; O99.02 Anemia complicating childbirth; D64.9 Anemia, unspecified; O70.0 First degree perineal laceration during delivery; O69.81X0 Labor and delivery complicated by cord around neck, without compression, not applicable or unspecified
CPT/HCPCS: 12345; 36415; 51702; 59025; 59409; 76856; 85025; 85027; 99211; J0290; J2795

== ENCOUNTER → 2020-03-12 09:13 | Outpatient (BNVA) | payer BC, SELFPAY | PROVIDERS: PCP Family Medicine; Visit Provider Obstetrics & Gynecology | DX: R93.5 Abnormal findings on diagnostic imaging of other abdominal regions, including retroperitoneum (principal); N87.0 Mild cervical dysplasia | CPT/HCPCS: 76856 ==

== ENCOUNTER → 2020-05-23 16:01 | Outpatient (BNVA) | payer BC, SELFPAY | PROVIDERS: PCP Family Medicine; Visit Provider Obstetrics & Gynecology | DX: N87.0 Mild cervical dysplasia (principal) | CPT/HCPCS: 88175 ==

== ENCOUNTER → 2021-03-26 11:40 | Outpatient (BNVA) | payer BC, SELFPAY | PROVIDERS: PCP Family Medicine; Visit Provider Nurse Practitioner Women's Health | DX: N92.6 Irregular menstruation, unspecified (principal) | CPT/HCPCS: 81025 ==

== ENCOUNTER 2021-11-09 11:16 | Inpatient (IN) | payer BC, SELFPAY ==
[2021-11-09] VITALS (40 sets, daily range): BP systolic 102–188; BP diastolic 60–100; PULSE 57–101; RESP 16; TEMP 36.2–36.8; O2SAT 98–99; BMI 29.2
[2021-11-09] MEDS: lactated ringers 1,000 ML 999 ML IV ×2 (11:45→12:24)
[2021-11-09 11:48] LABS: Basophils % 0.2 %; Eosinophils # 0.2 10^3/uL (0.0-0.8); Eosinophils % 1.6 %; Hematocrit 33.7 % (37.0-47.0); Hemoglobin 11.2 g/dL (11.5-15.3); Lymphocytes # 3.5 10^3/uL (0.8-4.8); Lymphocytes % 28.2 %; Mean Corpuscular HGB Conc 33.2 g/dL (30.0-36.0); Mean Corpuscular Hemoglobin 29.7 pg (28.0-34.0); Mean Corpuscular Volume 89.4 fl (81-99); Mean Platelet Volume 10.8 fL (7.4-10.4); Monocytes # 0.7 10^3/uL (0.2-0.9); Monocytes % 5.9 %; Neutrophils # 7.76 10^3/uL (1.8-7.7); Neutrophils % 63.2 %; Nucleated Red Blood Cells % 0 %; Platelet Count 278 10^3/cmm (130-400); Red Blood Count 3.77 10^6/uL (4.1-5.3); Red Cell Distribution Width 13.1 % (12.1-15.1); White Blood Count 12.3 10^3/uL (4.0-10.0)
--- NOTE | 2021-11-09 12:27 | P.ANESASSM_ITS ---
Documented by User: Briana Lozano CRNA 11/09/21 12:30 Pre-Anesthetic Assessment Height/Weight: Height 1.57 m Pulse BP Pulse Ox 66 121/68 99 11/09/21 12:22 11/09/21 12:22 11/09/21 12:14 Labor Epidural Familial anesthetic complications: None Last intake: clears- current meal 1800 11/08/21 Social No alcohol and No tobacco Exam alert, oriented x 3 and clear to auscultation bilaterally Airway Submandibular: within normal limits Cervical ROM: within normal limits Mallampati: Class II Dentition: full History/ROS No significant history except as noted Pulmonary None reported CV/HEM None reported None reported Hepatic None reported GI None reported Metabolic None reported Musc/skel None reported Neuropsych None reported Anesthetic Plan ASA status: 2 Anesthesia: Regional (specify below) Other: Labor Epidural Medications/Allergies Home Medications Medication Instructions Recorded Confirmed Last Taken Type prenat.vits,rich,fcj-lbdw-bmnoz 1 tab PO DAILY 03/26/21 07/15/21 Unknown History food supplemt, lactose-reduced 1 ea PO BID #[id number] ml 04/04/21 07/15/21 Unknown Rx (Ensure Active Protein-Muscle) nystatin 100,000 unit/mL oral 6 ml PO QID 14 Days #336 ml 07/15/21 07/15/21 Unknown Rx suspension Allergies Allergy/AdvReac Type Severity Reaction Status Date / Time No Known Allergies Allergy Verified 04/03/21 09:23 Current Medications Generic Name Dose Route Start Last Admin Trade Name Freq PRN Reason Stop Dose Admin Ropivacaine 100 mls @ 13 mls/hr 11/09/21 11:30 11/09/21 12:23 Naropin XX 13 mls/hr .[id number] TERENCE Administration Lactated Ringer's 1,000 mls @ 999 mls/hr 11/09/21 11:21 11/09/21 12:24 Lactated Ringers IV 999 mls/hr .Q1H1M PRN Administration See label comments [facility] Anesthesia Medical History No pertinent past medical history Denies diabetes, asthma, hypertension, seizures, DVT/PE. 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 Surgical History S/P tonsillectomy At the age of 9 S/P wisdom tooth extraction Family History Father Hypertension Hyperlipidemia Heart disease Grandmother Colon cancer Maternal--dx age 80 Denies family history of Ovarian cancer Diabetes Breast cancer Uterine cancer Thyroid condition Stroke Social History (Updated 07/15/21 @ 15:03 by Cori Hdez LPN) Smoking and tobacco status: never smoked Additional social history: - Female Reproductive History Date of last menstrual period: 05/06/19 Data Anesthesia : 11/10/21 03:16 Short CBC 11/09/21 Range/Units 11:25 WBC 12.3 H (4.0-10.0) 10^3/uL Hgb 11.2 L (11.5-15.3) g/dL Hct 33.7 L (37.0-47.0) % MCV 89.4 (81-99) fl Plt Count 278 (130-400) 10^3/cmm Neut % (Auto) 63.2 % Neut # (Auto) 7.76 H (1.8-7.7) 10^3/uL Cardiac Studies: No Data to Display Anesthesia Procedures Epidural Time Out Performed: Yes Consent: from patient, risks and benefits reviewed and patient agrees to proceed Lumbar Level: L3-L4 Epidural position: sitting Epidural procedure: sterile prep of area, 1% lidocaine to numb the area, negative for paresthesia passed, test dose given, 1.5% xylocaine 1:200k epi, placed PCEA, no systemic response, sterile dressing applied, L.U.D. no apparent complications and 0.2% Ropiavacaine @ mls/hr (13) Additional Comments: 100 mcg fentanyl given via epidural remaining 1% lidocaine given.
--- NOTE | 2021-11-09 14:42 | P.PCNOB_ITS ---
Delivery Note: Date of delivery: November 09, 2021 Procedure: Normal spontaneous vaginal delivery Estimated blood loss (mL): 200 Pre-Delivery Course: The patient had routine care at [facility] with Dr. Parekh. Dr. Parekh was out of town so I was the covering physician. There were no notable complications during the . Mother was blood type O+ antibody negative, GC chlamydia negative, HIV nonreactive, hepatitis B nonreactive, hepatitis C nonreactive, rubella immune, RPR nonreactive, she passed her 1 hour glucose tolerance test, and she was GBS negative. Delivery: This is a 31-year-old G4, P2 at 38 weeks 3 days gestation who presented to labor and delivery with advanced dilation. Her membranes were in tact and she did have time to receive an epidural for pain management. When she was completely dilated and effaced she had artificial rupture of membranes with thin meconium. Rupture of membranes was less than 15 minutes prior to delivery. It only took her to contractions to deliver over an intact perineum. The infant was suctioned at delivery and placed on mother's chest. There was a true knot in the cord that was loose. The cord was clamped and cut. Cord blood was obtained. The placenta was delivered grossly intact and normal to inspection. There was a small first-degree perineal laceration that was sutured using 3-0 chromic. Mother and were doing well after delivery. EBL 200 mL. History History History 4 Term 2 Miscarriages/Ectopic 1 0 Living Children 2 A&P Assessment and plan (1) Normal spontaneous vaginal delivery: Status: Acute (2) Sterilization consult: Status: Acute Plan Routine care. The patient has requested a bilateral tubal ligation. She has discussed this with Dr. Parekh. I reviewed the procedure and the fact that it is permanent and not reversible. She wishes to proceed. This will be scheduled for tomorrow. Coding Level of Care Code Acute Pantry Attendant for Jada Wagner Diagnoses Normal spontaneous vaginal delivery O80 Sterilization consult Z30.
--- NOTE | 2021-11-09 14:42 | PM.OPHPUD ---
Labor & Delivery H&P Update Date of Procedure: November 09, 2021 Date H&P Performed: 11/09/21 Changes to previous documentation: IUP at 38 weeks 3 days gestation in active labor. Admission Diagnosis: Planned procedure: Expectant management
[2021-11-09] MEDS: docusate sodium 100 mg Capsule PO (20:51)
[2021-11-09] MEDS: ibuprofen 800 mg tablet PO (20:52)
[2021-11-09] MEDS: ketorolac 30 mg/mL INJ IVP (21:41)
[2021-11-10] VITALS (18 sets, daily range): BP systolic 93–130; BP diastolic 51–87; PULSE 60–88; RESP 12–18; TEMP 36.2–36.8; O2SAT 93–100
[2021-11-10 03:28] LABS: Hematocrit 28.6 % (37.0-47.0); Hemoglobin 9.6 g/dL (11.5-15.3); Mean Corpuscular HGB Conc 33.6 g/dL (30.0-36.0); Mean Corpuscular Hemoglobin 30.4 pg (28.0-34.0); Mean Corpuscular Volume 90.5 fl (81-99); Mean Platelet Volume 10.8 fL (7.4-10.4); Platelet Count 209 10^3/cmm (130-400); Red Blood Count 3.16 10^6/uL (4.1-5.3); Red Cell Distribution Width 13.2 % (12.1-15.1); White Blood Count 13.6 10^3/uL (4.0-10.0)
[2021-11-10] MEDS: ketorolac 30 mg/mL INJ IVP (06:03)
--- NOTE | 2021-11-10 08:09 | ANE.PACU2 ---
Inpatient post-anesthesia follow up: Airway intact: Yes Vital signs: Temperature 98.0 F Pulse Rate 71 Respiratory Rate 16 Blood Pressure 108/63 Pulse Oximetry 99 Oxygen Delivery Me thod Room Air Oxygen Flow Rate Fraction of Inspir ed Oxygen Hydration adequate: Yes Nausea and vomiting: No Pain level: 1 Mental status: Baseline
--- NOTE | 2021-11-10 08:10 | P.ANESASSM_ITS ---
Pre-Anesthetic Assessment Height/Weight: Height 1.57 m Weight 72.575 kg Temp Pulse Resp BP Pulse Ox 98.0 F 71 16 108/63 99 11/10/21 04:20 11/10/21 04:20 11/10/21 04:20 11/10/21 04:20 11/09/21 12:14 Preop Diagnosis: desired infertility Operation Date: 11/10/21 10:40 Proposed Procedures p Post Bilateral Tubal Ligation(Not Applicable) - Bing Garcia MD Operation Date: 11/10/21 10:30 Proposed Procedures p Bilateral Tubal Ligation(Bilateral) - Bing Garcia MD Familial anesthetic complications: None Was Beta Jamar taken within 24 hours: N/A Was Clonidine taken within 24 hours: N/A Last intake: Full stomach, last intake 11/09/21 Social No alcohol and No tobacco Exam alert, oriented x 3, clear to auscultation bilaterally and regular rate & rhythm Airway Submandibular: within normal limits Cervical ROM: within normal limits Mallampati: Class I Dentition: full History/ROS No significant complaints Pulmonary None reported CV/HEM None reported Post < 24 hours Cervical intraepithelial neoplasia Hepatic None reported GI None reported Metabolic None reported Musc/skel None reported Neuropsych None reported Anesthetic Plan ASA status: 2 Anesthesia: Anesthesia Evaluation and Regional (specify below) (Spinal) Other: Patient request not being put asleep. We discussed risk and benefits of spinal anesthesia including infection, paralysis/catastrophic nerve injury, back bruising/pain, PDPH, conversion to general in case of spinal failure, intraoperative and PONV, life threatening al lergic reaction, post operative ICU admission requiring prolonged intubation, stroke, heart attack. Risk of > 500 ml blood loss (7ml/kg in children): No Medications/Allergies Home Medications Medication Instructions Recorded Confirmed Last Taken Type prenat.vits,rich,eia-dend-gdgmh 1 tab PO DAILY 03/26/21 07/15/21 Unknown History food supplemt, lactose-reduced 1 ea PO BID #10984 ml 04/04/21 07/15/21 Unknown Rx (Ensure Active Protein-Muscle) nystatin 100,000 unit/mL oral 6 ml PO QID 14 Days #336 ml 07/15/21 07/15/21 Unknown Rx suspension Allergies Allergy/AdvReac Type Severity Reaction Status Date / Time No Known Allergies Allergy Verified 04/03/21 09:23 Current Medications Generic Name Dose Route Start Last Admin Trade Name Freq PRN Reason Stop Dose Admin Docusate Sodium 100 mg 11/09/21 18:00 11/09/21 20:51 Docusate Sodium 100 Mg Capsule PO 100 mg BID TERENCE Administration Ibuprofen 800 mg 11/09/21 15:43 11/09/21 20:52 Ibuprofen 800 Mg Tablet PO 800 mg TID TERENCE Administration Ketorolac Tromethamine 30 mg 11/09/21 21:23 11/10/21 06:03 Ketorolac 30 Mg/Ml Inj IVP 11/14/21 21:22 30 mg Q8H PRN Administration MODERATE PAIN PFSH Anesthesia Medical History No pertinent past medical history Denies diabetes, asthma, hypertension, seizures, DVT/PE. PMD: Dede Gingrich [employer] Surgical History S/P tonsillectomy At the age of 9 S/P wisdom tooth extraction Family History Father Hypertension Hyperlipidemia Heart disease Grandmother Colon cancer Maternal--dx age 80 Denies family history of Ovarian cancer Diabetes Breast cancer Uterine cancer Thyroid condition Stroke Social History Smoking and tobacco status: never smoked Additional social history: - Female Reproductive History Date of last menstrual period: 05/06/19 : 4 Data Anesthesia : 11/10/21 03:16 Short CBC 11/09/21 11/10/21 Range/Units 11:25 03:16 WBC 12.3 H 13.6 H (4.0-10.0) 10^3/uL Hgb 11.2 L 9.6 L (11.5-15.3) g/dL Hct 33.7 L 28.6 L (37.0-47.0) % MCV 89.4 90.5 (81-99) fl Plt Count 278 209 (130-400) 10^3/cmm Neut % (Auto) 63.2 % Neut # (Auto) 7.76 H (1.8-7.7) 10^3/uL Cardiac Studies: No Data to Display
[2021-11-10] MEDS: sodium chloride 0.9% 1,000 ML 30 ML IV (09:14)
--- NOTE | 2021-11-10 11:19 | ANE.PACU2 ---
Inpatient post-anesthesia follow up: Vital signs: Temperature 97.8 F Pulse Rate 88 Respiratory Rate 18 Blood Pressure 119/70 Pulse Oximetry 99 Oxygen Delivery Me thod Room Air Oxygen Flow Rate Fraction of Inspir ed Oxygen
--- NOTE | 2021-11-10 12:12 | PM.OP ---
Operative Report Date of procedure: November 10, 2021 Pre-op diagnosis: Preop Diagnosis desired surgical sterilization Procedure done: bilateral tubal ligation Specimens removed/disposition: Segments of right and left fallopian tube Surgeon: Bing Garcia MD Anesthesia: Other (Spinal) Estimated blood loss (mL): 2 IV fluids (mL): 1,200 Procedure: After where spinal anesthesia was administered. She was prepped and draped in normal sterile fashion in dorsal supine position with. After adequate spinal anesthesia was verified a curvilinear infraumbilical incision was made and carried through to the underlying layer of fascia bluntly using a hemostat. The fascia was grasped with Allis clamps and entered sharply using the Metzenbaums. The peritoneum was then entered bluntly. The left fallopian tube was grasped with a Zulay and brought into the operative field. Fimbria were identified. A distal portion of the tube was ligated and excised. Tubal ostia were identified. Segment of tube was sent to pathology. The cut portions of the tube were coagulated with the Bovie and after hemostasis was obtained they were returned to the abdomen. The right fallopian tube was then grasped with a Zulay and brought into the operative field. Fimbria were seen. A midportion of the tube was ligated and excised. Tubal ostia were identified. Segment of the tube was sent to pathology. The cut portions of the tube were coagulated using the Bovie and then after excellent hemostasis was obtained they were returned to the abdomen. The peritoneum and fascia was reapproximated using 0 Vicryl in a running fashion. The skin was then reapproximated using 4-0 Vicryl in a running fashion. 20 mL of 1% lidocaine was injected circumferentially around the incision site. Steri-Strips and a pressure bandage were applied and patient went to recovery in good condition. Sponge instrument and needle counts were correct.
--- NOTE | 2021-11-10 12:20 | PM.DCS ---
Discharge Providers Date of Admission: 11/09/21 11:16 Date of Discharge: November 10, 2021 Attending Provider at Admission: Bing Garcia MD Attending Provider at Discharge: Bing Garcia MD Primary Care Provider: Perry Parekh MD Diagnoses at Discharge Discharge Diagnosis (1) Normal spontaneous vaginal delivery: Status: Acute (2) Sterilization consult: Status: Acute Reason for Visit Reason for Visit: Contractions Hospital Course Hospital Course This is a 31-year-old G4 now P3 who was admitted in active labor. She had a normal spontaneous vaginal delivery of a viable male . On day #1 she underwent a bilateral tubal ligation. She did well postoperatively, was tolerating a regular diet, ambulating, decreased vaginal bleeding and was comfortable with discharge home. Physical Exam Const: COMMON NORMALS: no acute distress Eye: COMMON NORMALS: Equal, round and reactive pupils present and EOMs intact bilaterally PUPIL: Yes Equal, round and reactive pupils present Chest: COMMONS NORMALS: normal inspection of the chest Resp: COMMON NORMALS: normal respiratory effort and clear to auscultation bilaterally AUSCULTATION: clear to auscultation bilaterally Cardio: COMMON NORMALS: regular rate and regular rhythm RATE: regular rate RHYTHM: regular rhythm Extremity: NARRATIVE EXTREMITY EXAM: No calf tenderness Urinary Catheter Management: Mitchell: Cath Placed During This Visit: yes, but has since been removed by the nurse Reason for Continuing Indwelling Catheter: Acute Urinary Retention or Obstruction Urinary Catheter Date of Insertion: 11/09/21 Urinary Catheter Time of Insertion: 12:52 Date Urinary Catheter Removed: 11/09/21 Time Urinary Catheter Discontinued: 14:10 Discharge Data Studies Completed and Pending Pending at discharge Category Date Time Status Pathology: Surgical [PTH] Routine Pth 11/10/21 12:13 Ordered Laboratory Results WBC 13.6 10^3/uL (4.0-10.0) H 11/10/21 03:16 RBC 3.16 10^6/uL (4.1-5.3) L 11/10/21 03:16 Hgb 9.6 g/dL (11.5-15.3) L 11/10/21 03:16 Hct 28.6 % (37.0-47.0) L 11/10/21 03:16 MCV 90.5 fl (81-99) 11/10/21 03:16 MCH 30.4 pg (28.0-34.0) 11/10/21 03:16 MCHC 33.6 g/dL (30.0-36.0) 11/10/21 03:16 RDW 13.2 % (12.1-15.1) 11/10/21 03:16 Plt Count 209 10^3/cmm (130-400) 11/10/21 03:16 MPV 10.8 fL (7.4-10.4) H 11/10/21 03:16 Neut % (Auto) 63.2 % 11/09/21 11:25 Lymph % (Auto) 28.2 % 11/09/21 11:25 [place] % (Auto) 5.9 % 11/09/21 11:25 Eos % (Auto) 1.6 % 11/09/21 11:25 Baso % (Auto) 0.2 % 11/09/21 11:25 Neut # (Auto) 7.76 10^3/uL (1.8-7.7) H 11/09/21 11:25 Lymph # (Auto) 3.5 10^3/uL (0.8-4.8) 11/09/21 11:25 [place] # (Auto) 0.7 10^3/uL (0.2-0.9) 11/09/21 11:25 Eos # (Auto) 0.2 10^3/uL (0.0-0.8) 11/09/21 11:25 Baso # (Auto) 0.0 10^3/uL (0.0-0.1) 11/09/21 11:25 Nucleated RBC % (auto) 0 % 11/09/21 11:25 Nucleated RBCs # 0.0 /100WBC 11/09/21 11:25 Vitals Last Vital Signs Temp 97.9 F 11/10/21 12:11 Pulse 68 11/10/21 12:11 Resp 12 11/10/21 12:11 BP 99/52 11/10/21 12:11 Pulse Ox 98 11/10/21 12:11 Discharge Plan Discharge Patient Disposition: Home Condition: Stable Prescriptions: New ibuprofen 800 mg Tablet 800 mg PO TID PRN (Reason: Abdominal Discomfort) Qty: 40 0RF hydrocodone-acetaminophen 5-325 mg tablet 1 tab PO Q4H PRN (Reason: pain) Qty: 8 0RF Continued prenat.vits,rich,vro-ouvz-jtsnn Tablet 1 tab PO DAILY 0RF nystatin 100,000 unit/mL suspension 6 ml PO QID 14 Days Qty: 336 0RF Rx Instructions: swish and swallow Ensure Active Protein-Muscle Liquid 1 ea PO BID Qty: 79840 1RF Referrals: Bing Garcia MD [Physician] - 4-7 days Discharge Diet: Usual diet Discharge Activity: Limit activity as instructed Patient Instructions: Opioid Safety Activity Restrictions/Additional Instructions: No lifting greater than 10 lbs for 2 weeks. Nothing per vagina for 6 weeks. Discharge Attestations Time Spent in Discharge Care*: less than 30 min Status at Discharge: Cognitive status at discharge: cognitively intact, Behavioral status at discharge: cooperative, Quality Metrics Clinical Quality Measures [ No reported AMI, CVA or VTE this stay] Coding Level of Care Code Acute Chg FW DC note Diagnoses Normal spontaneous vaginal delivery O80 Sterilization consult Z30
--- NOTE | 2021-11-10 12:39 | SUR.PHASEI ---
1213 SCDs on pump and working 1240 spinal sensation returned to L2-L3. Pt awake, alert, and talking.
--- NOTE | 2021-11-10 13:42 | ANE.PACU2 ---
Inpatient post-anesthesia follow up: Airway intact: Yes Vital signs: Temperature 97.2 F Pulse Rate 62 Respiratory Rate 18 Blood Pressure 113/73 Pulse Oximetry 97 Oxygen Delivery Me thod Room Air Oxygen Flow Rate 3 Fraction of Inspir ed Oxygen Hydration adequate: Yes Nausea and vomiting: No Pain level: 1 Mental status: Baseline
[2021-11-10] MEDS: ibuprofen 800 mg tablet PO (14:48)
[2021-11-10] MEDS: HYDROcodone-acetaminophen 5-325 mg Tablet PO (14:49)
== END 2021-11-10 18:30 | disposition home or self-care (01) | DRG 798 ==
LOC: OPOB 11:16 → OBGYN 11:16
PROVIDERS: Admitting Provider Family Medicine; PCP Family Medicine; Visit Provider Family Medicine
PROC: 0UB74ZZ Excision of Bilateral Fallopian Tubes, Percutaneous Endoscopic Approach (ICD-10-PCS; CPT 58605; principal; 2021-11-10 10:30)
DX: O77.0 Labor and delivery complicated by meconium in amniotic fluid (principal); Z37.0 Single live birth; O69.2XX0 Labor and delivery complicated by other cord entanglement, with compression, not applicable or unspecified; O70.0 First degree perineal laceration during delivery; Z3A.38 38 weeks gestation of pregnancy; Z30.2 Encounter for sterilization
CPT/HCPCS: 36415; 51702; 59409; 85025; 85027; 88302; 99211; J1885; J2250; J2795; J3010; J7030

== ENCOUNTER 2023-03-06 18:52 | Emergency (ER) | payer BC, SELFPAY ==
[2023-03-06 18:56] VITALS: BP 123/81; PULSE 109; RESP 16; TEMP 36.7; O2SAT 100; BMI 22.8
--- NOTE | 2023-03-06 19:27 | CTR_ITS ---
PROCEDURE INFORMATION: Exam: CT Head Without Contrast Exam date and time: 03/06/2023 7:35 PM Age: 33 years old Clinical indication: Weakness, facial; Additional info: Facial droop, RT sided facial droop x2d TECHNIQUE: Imaging protocol: Computed tomography of the head without contrast. Radiation optimization: All CT scans at this facility use at least one of these dose optimization techniques: automated exposure control; mA and/or kV adjustment per patient size (includes targeted exams where dose is matched to clinical indication); or iterative reconstruction. REPORTING DATA: Count of CT and Cardiac NM exams in prior 12 months: This patient has received 0 known CTs and 0 known cardiac nuclear medicine studies in the 12 months prior to the current study. COMPARISON: No relevant prior studies available. RADIATION DOSE METRICS: Total DLP (mGy-cm): 1026 FINDINGS: Brain: Normal. No hemorrhage. Unremarkable white matter. No mass effect. Cerebral ventricles: No ventriculomegaly. Paranasal sinuses: Visualized sinuses are unremarkable. No fluid levels. Mastoid air cells: Visualized mastoid air cells are well aerated. Bones/joints: Unremarkable. No acute fracture. Soft tissues: Unremarkable. CT/CT head wo con* [id number] IMPRESSION: No acute intracranial abnormality.
--- NOTE | 2023-03-06 19:28 | W.ED.GENADLT ---
HPI - General Adult General: Chief complaint: General Medical Stated complaint: right side of face is numb Time Seen by Provider: 03/06/23 19:04 Source: patient Mode of arrival: ambulatory Limitations: no limitations History of Present Illness: Patient presents to the emergency department today for evaluation treatment of concerns for progressing right-sided facial droop. Patient states she noticed 2 days ago intense dry throat, she states it was the dry sore throat has ever been and was so dry it hurt. She reports she started to notice pain just in sensation to the right side of her tongue which have progressed and continued. Patient now has issues with raising the corner of her mouth on the right when she smiles and, states she cannot frown on the right side. She reports she is unable to put her mouth around a straw to drink-the water just runs out the side of her mouth. She has difficulty blinking her eye on the right side but, is able to fully elevate her eyebrows at this time. She complains somewhat of a headache but no severe ear pain. She has not been ill recently with upper respiratory symptoms or fever to her knowledge. Patient just got back from [place] after visiting some family today and decided to be seen. She denies calf pain, lower extremity swelling. She does not take control, denies any cancer history, and reports she does not smoke. She has never had a blood clot in the past. She reports an aunt who has had strokes in the past. Patient denies any body weakness or numbness. Patient states she is very anxious because of the symptoms but, is not having any chest pains or shortness of breath. Review of Systems General: Reports: 10 or more systems reviewed and unremarkable except in HPI and below PFSH ED PFSH: Medical History No pertinent past medical history Denies diabetes, asthma, hypertension, seizures, DVT/PE. PMD: Dede PINZONP Surgical History S/P tonsillectomy At the age of 9 S/P wisdom tooth extraction Family History Father Hypertension Hyperlipidemia Heart disease Grandmother Colon cancer Maternal--dx age 80 Denies family history of Ovarian cancer Diabetes Breast cancer Uterine cancer Thyroid condition Stroke Social History Smoking and tobacco status: never smoked Substance/Drug Use: never Additional social history: - Physical Exam Const: COMMON NORMALS: no acute distress, patient oriented x3 and alert HENMT: COMMON NORMALS: normocephalic, atraumatic and hearing grossly normal bilaterally HEAD & SCALP: normocephalic and atraumatic Eye: COMMON NORMALS: Equal, round and reactive pupils present, EOMs intact bilaterally and conjunctivae normal CONJUNCTIVA: Yes conjunctivae normal PUPIL: Yes Equal, round and reactive pupils present Neck/C-Spine: COMMON NORMALS: full ROM and no JVD Lymph: LYMPHATIC: no lymphadenopathy noted Resp: COMMON NORMALS: normal respiratory effort, No retractions and No use of accessory muscles Cardio: COMMON NORMALS: no JVD and regular rate RATE: regular rate : COMMON NORMALS: Yes no CVA tenderness BLADDER/KIDNEY EXAM: Yes no CVA tenderness Back/Pelvis: COMMON NORMALS: no CVA tenderness and thoraco-lumbar ROM normal Neuro: COMMON NORMALS: patient oriented x3 SENSORIUM/ORIENTATION: Yes alert OTHER: Patient does have deficit noted to the right side of her face. Patient is able to fully elevate her eyebrows bilaterally but, does have obvious slowed and decreased blinking capability on the right eye, decreased ability to blink on the right eye. Patient has obvious deficit to the right corner of her mouth while smiling as well as while frowning. Patient's tongue slightly deviates to the right at the tip. Psych: COMMON NORMALS: mental status grossly normal, Normal thought process present, cooperative and normal affect THOUGHT PROCESS: Normal thought process present Skin: COMMON NORMALS: no rashes or lesions noted and turgor normal GENERAL SKIN EXAM: no rashes or lesions noted and turgor normal Course Vital Signs: Vital signs: Vital Signs Temperature 98.0 F 03/06/23 18:56 Pulse Rate 96 03/06/23 21:41 Respiratory Rate 18 03/06/23 21:41 Blood Pressure 125/89 03/06/23 21:41 Pulse Oximetry 96 03/06/23 21:41 Oxygen Delivery Me thod Room Air 03/06/23 21:02 MDM - General Adult Medical Decision Making Patient CT scan is negative for any acute concerns. Patient's lab work is otherwise unremarkable. I did discuss the case with Dr. 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 I did discuss this with the patient. We had a long discussion regarding symptoms and clinical course. Given that she has only started having symptoms over the last couple of days we are going to treat her with steroids. She is requesting a new primary care doctor and a referral to case management was initiated as I do think it be a good idea she have follow-up regarding this new onset of Ortiz's palsy. Informational handout regarding Ortiz's palsy provided for her reference at home. However, went over any change or worsening in neurological condition for which she is to be seen and reevaluated through the emergency department. Patient verbalizes understanding and agreement to the treatment plan. Differential Diagnosis Ortiz's palsy, stroke, herpes zoster, trigeminal neuralgia Lab Data 03/06/23 19:45 03/06/23 19:[address] 03/06/23 19:27 IMPRESSION: No acute intracranial abnormality. Laboratory Results WBC 7.9 10^3/uL (4.0-10.0) 03/06/23 19:45 RBC 4.22 10^6/uL (4.1-5.3) 03/06/23 19:45 Hgb 13.5 g/dL (11.5-15.3) 03/06/23 19:45 Hct 39.6 % (37.0-47.0) 03/06/23 19:45 MCV 93.8 fl (81-99) 03/06/23 19:45 MCH 32.0 pg (28.0-34.0) 03/06/23 19:45 MCHC 34.1 g/dL (30.0-36.0) 03/06/23 19:45 RDW 12.2 % (12.1-15.1) 03/06/23 19:45 Plt Count 261 10^3/cmm (130-400) 03/06/23 19:45 MPV 10.3 fL (7.4-10.4) 03/06/23 19:45 Neut % (Auto) 45.7 % 03/06/23 19:45 Lymph % (Auto) 45.5 % 03/06/23 19:45 [place] % (Auto) 6.2 % 03/06/23 19:45 Eos % (Auto) 2.1 % 03/06/23 19:45 Baso % (Auto) 0.5 % 03/06/23 19:45 Neut # (Auto) 3.62 10^3/uL (1.8-7.7) 03/06/23 19:45 Lymph # (Auto) 3.6 10^3/uL (0.8-4.8) 03/06/23 19:45 [place] # (Auto) 0.5 10^3/uL (0.2-0.9) 03/06/23 19:45 Eos # (Auto) 0.2 10^3/uL (0.0-0.8) 03/06/23 19:45 Baso # (Auto) 0.0 10^3/uL (0.0-0.1) 03/06/23 19:45 Nucleated RBC % (auto) 0 % 03/06/23 19:45 Nucleated RBCs # 0.0 /100WBC 03/06/23 19:45 ESR < 1 mm/hr (0-15) 03/06/23 19:45 Sodium 135 mmol/L (136-145) L 03/06/23 19:45 Potassium 3.9 mmol/L (3.5-5.1) 03/06/23 19:45 Chloride 102 mmol/L (98-107) 03/06/23 19:45 Carbon Dioxide 23 mmol/L (22-29) 03/06/23 19:45 Anion Gap 13.9 (5-19) 03/06/23 19:45 BUN 13 mg/dL (6-20) 03/06/23 19:45 Creatinine 0.5 mg/dL (0.5-0.9) 03/06/23 19:45 GFR Calculation 143.0 mL/min (90-130) H 03/06/23 19:45 Glucose 79 mg/dL (65-115) 03/06/23 19:45 Calculated Osmolality 279 mOsm/kg (285-295) L 03/06/23 19:45 Calcium 9.1 mg/dL (8.5-10.5) 03/06/23 19:45 Total Bilirubin 0.2 mg/dL (0.15-1.2) 03/06/23 19:45 AST 13 U/L (0-32) 03/06/23 19:45 ALT 12 U/L (0-33) 03/06/23 19:45 Alkaline Phosphatase 44 U/L (35-105) 03/06/23 19:45 C-Reactive Protein 3.0 mg/L (0.0-4.9) 03/06/23 19:45 Total Protein 7.0 g/dL (6.6-8.7) 03/06/23 19:45 Albumin 4.6 g/dL (3.5-5.2) 03/06/23 19:45 Globulin 2.4 g/dL (1.3-4.6) 03/06/23 19:45 Urine Color Colorless (Yellow) 03/06/23 20:05 Urine Appearance Clear (CLEAR) 03/06/23 20:05 Urine pH 7 (5-7) 03/06/23 20:05 Ur Specific [place] 1.005 (1.005-1.030) 03/06/23 20:05 Urine Protein Neg (Negative) 03/06/23 20:05 Urine Glucose (UA) Norm (Normal) 03/06/23 20:05 Urine Ketones Negative (Negative) 03/06/23 20:05 Urine Blood Neg (Negative) 03/06/23 20:05 Urine Nitrate Negative (Negative) 03/06/23 20:05 Urine Bilirubin Neg (Negative) 03/06/23 20:05 Urine Urobilinogen Norm mg/dL (Negative) 03/06/23 20:05 Ur Leukocyte Esterase Negative (Negative) 03/06/23 20:05 Urine Opiates Screen Negative ng/mL (Negative) 03/06/23 20:05 Ur Barbiturates Screen Negative ng/mL (Negative) 03/06/23 20:05 Ur Phencyclidine Scrn Negative ng/mL (Negative) 03/06/23 20:05 Ur Amphetamines Screen Negative ng/mL (Negative) 03/06/23 20:05 U Benzodiazepines Scrn Negative ng/mL (Negative) 03/06/23 20:05 Urine Cocaine Screen Negative ng/mL (Negative) 03/06/23 20:05 U Marijuana (THC) Screen Negative ng/mL (Negative) 03/06/23 20:05 Discharge Plan Discharge Patient Disposition: Home Clinical Impression: Facial paralysis/Eagle palsy Condition: Stable Prescriptions: New prednisone 20 mg tablet 60 mg PO DAILY 7 Days Qty: 21 0RF No Action prenat.vits,rich,[id number] Tablet 1 tab PO DAILY nystatin 100,000 unit/mL suspension 6 ml PO QID 14 Days Qty: 336 0RF Rx Instructions: swish and swallow Ensure Active Protein-Muscle Liquid 1 ea PO BID Qty: 24320 1RF ibuprofen 800 mg Tablet 800 mg PO TID PRN (Reason: Abdominal Discomfort) Qty: 40 0RF hydrocodone-acetaminophen 5-325 mg tablet 1 tab PO Q4H PRN (Reason: pain) Qty: 8 0RF Discharge Orders: Discharge ED (Routine); Ordered 03/06/23 Ordered By: Neema Castro Referrals: Perry Parekh MD [Primary Care Provider] - Discharge Diet: Usual diet Discharge Activity: Increase activity as tolerated Patient Instructions: Ortiz Palsy (ED) Activity Restrictions/Additional Instructions: Evaluation through the emergency department today reveals a diagnosis of Ortiz's palsy. Unfortunately, this can last for couple of weeks but, as you have only had symptoms for a few days, we can start you on some oral steroids to hopefully help shorten the length of time you have symptoms and the severity of symptoms. It will be very important that you apply [id number] lubricating eyedrops to your right eye as you are not fully blinking and therefore, ocular membranes can dry out. I have requested a follow-up appointment with a new primary care doctor so you can have a recheck of your symptoms. Coding Level of Care Code ED Licensed [employer] And [employer] Agent for Jada Wagner
--- NOTE | 2023-03-06 20:08 | ECG_ITS ---
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 Measurements Intervals [place] Rate: 80 P: 65 PA: 146 QRS: 59 QRSD: 94 T: 35 QT: 352 QTc: 408 Interpretive Statements SINUS RHYTHM INCOMPLETE RIGHT BUNDLE BRANCH BLOCK [90+ ms QRS DURATION, TERMINAL R IN V1/V2, 40+ ms S IN I/aVL/V4/V5/V6] No previous ECG available for comparison Electronically Signed On 03-06-2023 22:43:03 CDT by Jonathan Ardon M.D. [id number]
[2023-03-06 20:19] LABS: Erythrocyte Sedimentation Rate < 1 mm/hr (0-15)
[2023-03-06 20:23] LABS: Alanine Aminotransferase 12 U/L (0-33); Albumin Level 4.6 g/dL (3.5-5.2); Alkaline Phosphatase 44 U/L (35-105); Anion Gap 13.9 (5-19); Aspartate Amino Transferase 13 U/L (0-32); Basophils % 0.5 %; Blood Urea Nitrogen 13 mg/dL (6-20); Calcium 9.1 mg/dL (8.5-10.5); Carbon Dioxide 23 mmol/L (22-29); Chloride 102 mmol/L (98-107); Eosinophils # 0.2 10^3/uL (0.0-0.8); Eosinophils % 2.1 %; Globulin 2.4 g/dL (1.3-4.6); Glucose 79 mg/dL (65-115); Hematocrit 39.6 % (37.0-47.0); Hemoglobin 13.5 g/dL (11.5-15.3); Lymphocytes # 3.6 10^3/uL (0.8-4.8); Lymphocytes % 45.5 %; Mean Corpuscular HGB Conc 34.1 g/dL (30.0-36.0); Mean Corpuscular Volume 93.8 fl (81-99); Mean Platelet Volume 10.3 fL (7.4-10.4); Monocytes # 0.5 10^3/uL (0.2-0.9); Monocytes % 6.2 %; Neutrophils # 3.62 10^3/uL (1.8-7.7); Neutrophils % 45.7 %; Nucleated Red Blood Cells % 0 %; Osmolality Calculated 279 mOsm/kg (285-295); Platelet Count 261 10^3/cmm (130-400); Potassium 3.9 mmol/L (3.5-5.1); Red Blood Count 4.22 10^6/uL (4.1-5.3); Red Cell Distribution Width 12.2 % (12.1-15.1); Sodium 135 mmol/L (136-145); Total Bilirubin 0.2 mg/dL (0.15-1.2); White Blood Count 7.9 10^3/uL (4.0-10.0)
[2023-03-06 20:41] LABS: Add Urine Microscopic? NO; Charge for UA Resulting for Rev
[2023-03-06 20:52] LABS: Bilirubin Urine Neg (Negative); Blood Urine Neg (Negative); Glucose Urine UA Norm (Normal); Ketones Urine Negative (Negative); Leukocyte Esterase Urine Negative (Negative); Nitrate Urine Negative (Negative); Protein Urine Neg (Negative); Specific Gravity, Urine 1.005 (1.005-1.030); Urine Appearance Clear (CLEAR); Urine Color Colorless (Yellow); Urobilinogen Urine Norm (Negative); pH Urine 7 (5-7)
[2023-03-06 20:53] LABS: Amphetamines Screen Urine Negative (Negative); Barbiturates Screen Urine Negative (Negative); Benzodiazepines Screen Urine Negative (Negative); Cocaine Screen Urine Negative (Negative); Opiate Screen Urine Negative (Negative); PCP Screen Urine Negative (Negative); THC Screen Urine Negative (Negative)
[2023-03-06 21:02] VITALS: BP 115/88; PULSE 101; RESP 18; O2SAT 97
[2023-03-06 21:41] VITALS: BP 125/89; PULSE 96; RESP 18; O2SAT 96
--- NOTE | 2023-03-09 10:10 | DCPLANNER ---
distribution center manager had message to speak with patient about getting established with a primary care physician. distribution center manager spoke with patient, who stated that she is seeing Dr. Garcia and wants to stay with her, but would like major case detective to fax patients information to [facility] attn Dr. Garcia. Patient stated that she would call and schedule a follow up appointment. distribution center manager faxed patients information to [facility] for review with Dr. Garcia.
== END 2023-03-06 21:39 | disposition home or self-care (01) ==
PROVIDERS: Emergency Provider Physician Assistant; PCP Family Medicine
DX: G51.0 Bell's palsy (principal)
CPT/HCPCS: 36415; 70450; 80053; 80306; 81003; 85025; 85651; 86140; 93005; 99284